=== PATIENT | male | born 1980 | race African-American/Black ===

== ENCOUNTER 2021-03-30 13:26 | Emergency (ER) | payer BC ==
[2021-03-30 13:44] VITALS: TEMP 98.4; BMI 41.8
[2021-03-30] MEDS ORDERED: CASIRIVIMAB/IMDEVIMAB 10 ML in SODIUM CHLORIDE 100 ML IVPB ONE (13:53)
[2021-03-30 15:18] LABS: ALBUMIN 3.6 g/dl (3.4-5.0); BLOOD UREA NITROGEN 18.5 mg/dL (7-18); CALCIUM 8.4 mg/dL (8.5-10.1)
[2021-03-30 15:20] LABS: INR 1.09 (0.83-1.09); PROTHROMBIN TIME (PATIENT) 13.4 SEC (9.7-13.0)
[2021-03-30 15:22] LABS: CREATININE 1.4 mg/dL (0.55-1.3)
[2021-03-30 15:23] LABS: ACTIVATED PTT 26.9 SECONDS (25.2-36.5)
[2021-03-30] MEDS ORDERED: SODIUM CHLORIDE 1,000 ML IV STA (15:23)
[2021-03-30 15:24] LABS: BILIRUBIN,TOTAL 1.5 mg/dL (0.2-1); TOT PROT 7.4 g/dl (6.4-8.2)
[2021-03-30 15:53] LABS: EOS % 0.2 % (0-4.5); HEMATOCRIT 43.7 % (35.4-49); HEMOGLOBIN 15.5 GM/dL (11.7-16.9); LYMPH % 18.5 % (8-40); MCH 31.9 pg (25.7-33.7); MCHC 35.5 g/dl (32.0-35.9); MEAN CELL VOLUME 89.8 fl (80-96); MEAN PLT VOLUME 9.3 fl (7.5-11.1); MONO % 18.1 % (3.8-10.2); NEUT % 62.2 % (42.8-82.8); PLATELET COUNT 148 10^3/uL (134-434); RBC 4.87 M/mm3 (4.00-5.60); RDW 12.1 % (11.9-15.9); WHITE BLOOD COUNT 5.6 K/mm3 (4.0-10.0)
[2021-03-30 17:33] LABS: PLATELET ESTIMATE ADEQUATE
[2021-03-30 19:28] VITALS: BP 112/63; PULSE 69
== END 2021-03-30 19:28 | disposition home or self-care (01) ==
LOC: JCOVINFU 13:26 → JER 13:26 → JCOVINFU 19:28
PROC: 3E03329 Introduction of Other Anti-infective into Peripheral Vein, Percutaneous Approach (ICD-10-PCS; principal; 2021-03-30)
PROC: 3E0337Z Introduction of Electrolytic and Water Balance Substance into Peripheral Vein, Percutaneous Approach (ICD-10-PCS; 2021-03-30)
DX: U07.1 COVID-19 (principal); J12.82 Pneumonia due to coronavirus disease 2019
CPT/HCPCS: 36415; 71046-TC-FY; 80053; 85025; 85610; 85730; 99284-25; Q0240